=== PATIENT | male | born 1950 | race Two or more races ===

== ENCOUNTER 2020-08-26 13:30 | Outpatient (CLI) | payer MEDICARE, MEDICAID | END 2020-08-26 23:59 | disposition home or self-care (01) | LOC: MSC 13:30 | PROVIDERS: ATTEND Anesthesiology | DX: M46.96 Unspecified inflammatory spondylopathy, lumbar region (principal); M51.36 Other intervertebral disc degeneration, lumbar region; M54.16 Radiculopathy, lumbar region; M62.830 Muscle spasm of back; M17.9 Osteoarthritis of knee, unspecified; Z96.651 Presence of right artificial knee joint; M54.2 Cervicalgia; Z79.891 Long term (current) use of opiate analgesic ==

== ENCOUNTER 2020-09-23 13:30 | Outpatient (CLI) | payer MEDICARE, MEDICAID | END 2020-09-23 23:59 | disposition home or self-care (01) | LOC: MSC 13:30 | PROVIDERS: ATTEND Anesthesiology | DX: M46.96 Unspecified inflammatory spondylopathy, lumbar region (principal); M51.36 Other intervertebral disc degeneration, lumbar region; M54.16 Radiculopathy, lumbar region; M40.299 Other kyphosis, site unspecified; M62.830 Muscle spasm of back; M17.9 Osteoarthritis of knee, unspecified; Z79.891 Long term (current) use of opiate analgesic ==